=== PATIENT | female | born 1950 | race Caucasian/White ===

== ENCOUNTER 2023-11-10 15:07 | Emergency (ER) | payer OTHER, SELFPAY ==
[2023-11-10 15:15] VITALS: BP 180/85; PULSE 67; RESP 16; TEMP 36.6; O2SAT 98; BMI 33.8
--- NOTE | 2023-11-10 15:21 | DI.US.S_ITS ---
PROCEDURE: US PERIPH VENOUS LOW EXTREM LT INDICATIONS: pain and swelling/ history of a DVT TECHNIQUE: Real-time imaging, as well as color and pulse Doppler interrogation, were performed of the lower extremity deep veins from the inguinal ligament to the popliteal fossa, with documentation of the visualized calf veins. COMPARISON: None. FINDINGS: Nonocclusive thrombus is present in the common femoral vein and popliteal vein. Internal echoes are present along the wall. Remaining veins appear widely patent. IMPRESSION: Nonocclusive thrombus within the common femoral and popliteal vein. Cannot exclude subacute/ chronicity. No priors are available for comparison. Dictated by: Cecilia Hobson M.D. on 11/10/2023 at 16:35 Approved by: Ceiclia Hobson M.D. on 11/10/2023 at 16:37
[2023-11-10 17:22] VITALS: PULSE 66
--- NOTE | 2023-11-10 17:23 | ED_ITS ---
HPI - Extremity Problem <AMANDA Ta Last Filed: 11/10/23 17:57> General Chief complaint: Extremity Problem,Nontraumatic Stated complaint: concern for blood clot Time Seen by Provider: 11/10/23 17:23 Source: patient Mode of arrival: Wheelchair History of Present Illness HPI Narrative: This is a 73-year-old female presents to the emergency department due to left lower extremity pain and swelling for the last 4 or 5 days. She states that she was not being on her you bike as frequently which thinks may have caused the DVT. She states she has a history of DVT in the past. No recent surgeries. Related Data Previous Rx's Medication Instructions Recorded apixaban 5 mg (74 tabs) tablets in See Rx Instructions PO .COMPLEX 11/10/23 a dose pack (Eliquis DVT-PE Treat #74 ea 30D Start) rivaroxaban 15 mg (42)-20 mg (9) See Rx Instructions PO .COMPLEX 11/10/23 tablets in a starter pack (Xarelto #51 ea DVT-PE Treatment 30-Day Starter) rivaroxaban 15 mg (42)-20 mg (9) See Rx Instructions PO .COMPLEX 11/10/23 tablets in a starter pack (Xarelto #51 ea DVT-PE Treatment 30-Day Starter) Allergies Allergy/AdvReac Type Severity Reaction Status Date / Time amitriptyline Allergy Verified 11/10/23 15:30 amoxicillin Allergy Verified 11/10/23 15:30 atorvastatin Allergy Rash Verified 11/10/23 15:30 evolocumab Allergy Verified 11/10/23 15:30 ezetimibe Allergy Verified 11/10/23 15:30 famotidine Allergy Verified 11/10/23 15:30 lansoprazole Allergy Verified 11/10/23 15:30 naproxen Allergy Rash Verified 11/10/23 15:30 omeprazole Allergy Rash Verified 11/10/23 15:30 oxycodone Allergy Verified 11/10/23 15:30 Penicillins Allergy Verified 11/10/23 15:30 rosuvastatin Allergy Verified 11/10/23 15:30 tamsulosin Allergy Verified 11/10/23 15:30 zoster vaccine live Allergy Verified 11/10/23 15:30 corylus Allergy Uncoded 11/10/23 15:30 Review of Systems <AMANDA Ta Filed: 11/10/23 17:57> Review of Systems Narrative: GENERAL: Denies chills, fatigue, malaise, fever, sweats. HEENT: Denies sinus pain, ear pain, sore throat, difficulty swallowing, dizziness. RESPIRATORY: Denies dyspnea, cough, wheezing, hemoptysis, sputum. CARDIOVASCULAR: Denies chest pain, palpitations, orthopnea, edema, GASTROINTESTINAL: Denies nausea, vomiting, abdominal pain, diarrhea, constipation, melena. : Denies dysuria, frequency, incontinence, hematuria, urinary retention. MUSCULOSKELETAL: Reports left lower extremity pain and swelling SKIN: Denies rash, skin lesions, or other NEUROLOGIC: Denies weakness, headache, numbness, change in speech, confusion, seizures, incoordination. PSYCHIATRIC: No concerning psychosocial issues. 12 point review of systems is negative except for those stated above Patient History <Zohaib Proctor PA-C - Last Filed: 11/10/23 17:57> Social History Smoking Status: Never smoker Smoking Status: Never smoker Substance Use Type: does not use Exam <Zohaib Proctor PA-C - Last Filed: 11/10/23 17:57> Narrative Exam Narrative: GENERAL: Well-developed patient, in mild distress. HEAD: Atraumatic. Normocephalic. EYES: Pupils equal round and reactive. Extraocular motions intact. No scleral icterus. No injection or drainage. ENT: Nose without bleeding, purulent drainage. Throat without erythema, tonsillar hypertrophy or exudate. Airway patent. NECK: Trachea midline. Non tender EXTREMITIES: No significant tenderness to palpation to left lower extremity or swelling noted. Possible mild tenderness to palpation of the posterior thigh NEURO: AOx3. SKIN: No rash or erythema of visible areas Initial Vital Signs Initial Vital Signs: Vital Signs Temperature 97.9 F 11/10/23 15:15 Pulse Rate 67 11/10/23 15:15 Respiratory Rate 16 11/10/23 15:15 Blood Pressure 180/85 H 11/10/23 15:15 Pulse Oximetry 98 11/10/23 15:15 Oxygen Delivery Method Room Air 11/10/23 15:15 <Sonia Chandler DO - Last Filed: 11/11/23 18:48> Initial Vital Signs Initial Vital Signs: Vital Signs Temperature 97.9 F 11/10/23 15:15 Pulse Rate 67 11/10/23 15:15 Respiratory Rate 16 11/10/23 15:15 Blood Pressure 180/85 H 11/10/23 15:15 Pulse Oximetry 98 11/10/23 15:15 Oxygen Delivery Method Room Air 11/10/23 15:15 Course <Zohaib Proctor PA-C - Last Filed: 11/10/23 17:57> Orders Ordered: ED Orders 11/10/23 15:21 US periph venous low extrem lt Stat Vital Signs Vital signs: Vital Signs - 8 hr 11/10/23 15:15 11/10/23 17:22 Temperature 97.9 F Pulse Rate 67 Pulse Rate [Left Dorsalis Pedis] 66 Respiratory Rate 16 Blood Pressure 180/85 H Pulse Oximetry 98 Oxygen Delivery Method Room Air <Sonia Chandler DO - Last Filed: 11/11/23 18:48> Orders Ordered: ED Orders 11/10/23 15:21 US periph venous low extrem lt Stat Vital Signs Vital signs: Vital Signs - 8 hr 11/10/23 15:15 11/10/23 17:22 Temperature 97.9 F Pulse Rate 67 Pulse Rate [Left Dorsalis Pedis] 66 Respiratory Rate 16 Blood Pressure 180/85 H Pulse Oximetry 98 Oxygen Delivery Method Room Air MDM - Extremity (Nontraumatic) <Zohaib Proctor PA-C - Last Filed: 11/10/23 17:57> Imaging Data US - DVT: Radiologist's Impression: [place] [address] Ultrasound Report Signed Patient: Devorah Olmstead MR#: [id number] : 1950 Acct:[id number] Age/Sex: 73 / F Date of Service: 11/10/23 Loc: ED Accession Number: [id number] Procedure: US periph venous low extrem lt Ordering Provider: Sonia Chandler D.O. PROCEDURE: US PERIPH VENOUS LOW EXTREM LT INDICATIONS: pain and swelling/ history of a DVT TECHNIQUE: Real-time imaging, as well as color and pulse Doppler interrogation, were performed of the lower extremity deep veins from the inguinal ligament to the popliteal fossa, with documentation of the visualized calf veins. COMPARISON: None. FINDINGS: Nonocclusive thrombus is present in the common femoral vein and popliteal vein. Internal echoes are present along the wall. Remaining veins appear widely patent. IMPRESSION: Nonocclusive thrombus within the common femoral and popliteal vein. Cannot exclude subacute/ chronicity. No priors are available for comparison. Dictated by: Cecilia Hobson M.D. on 11/10/2023 at 16:35 Approved by: Cecilia Hobson M.D. on 11/10/2023 at 16:37 MDM Narrative Medical decision making narrative: ED course: This is a 73-year-old female presents to the emergency department due to an acute onset left lower extremity DVT based on ultrasound. We will treat with oral Eliquis. She was not reporting any chest pain or shortness of breath or any concerns for PE. CC: Left lower extremity pain Complicating co-morbidities: History of DVT in the past Data collected from: Previous notes Medical records reviewed: Patient was not been the past Differential considered, but not limited to: DVT, muscular strain Exam documented above, pertinent findings include: Some tenderness to palpation to posterior thigh Lab Test results independently reviewed as above. Pertinent findings: None obtained Imaging studies independently reviewed: Ultrasound showed DVT Scores Used: None MIPS Elements: None Consultations: None Treatments: None Re-evaluations: None Discussion: Discussed plan with the patient was comfortable with the plan Diagnosis: DVT Disposition: see below, along with detailed discharge instructions that have been reviewed with patient as well as indications for ED re-evaluation and additional outpatient follow up Discharge Plan Departure Patient Disposition: Home Clinical Impression: Deep vein thrombosis of lower extremity Activity Restrictions/Additional Instructions: Thank you for coming to the [facility] Emergency Department today. Please take the anticoagulation as prescribed. Please follow up with the primary care provider for complete treatment. I sent the medication to [facility] in [place]. Please return to the emergency department if you develop any chest pain, shortness of breath or any other concerning signs or symptoms. I hope you feel better soon. Please follow up with your primary care provider within a week if your symptoms continue. If you do not have a primary care provider please contact the [facility] Resource line at [phone]. They will ask some questions about your medical history and help you get set up with a provider in the community. Prescriptions: New Eliquis DVT-PE Treat 30D Start 5 mg (74 tabs) tablets,dose pack See Rx Instructions .ROUTE .COMPLEX Qty: 74 0RF Rx Instructions: orally per package directions Xarelto DVT-PE Treat 30d Start 15 mg (42)- 20 mg (9) tablets,dose pack See Rx Instructions .ROUTE .COMPLEX Qty: 51 0RF Rx Instructions: take one-15 mg tablet twice daily for 21 days, then one-20 mg tablet once daily; must take with meal/food Xarelto DVT-PE Treat 30d Start 15 mg (42)- 20 mg (9) tablets,dose pack See Rx Instructions .ROUTE .COMPLEX Qty: 51 0RF Rx Instructions: take one-15 mg tablet twice daily for 21 days, then one-20 mg tablet once daily; must take with meal/food Referrals: Miscellaneous,Doctor, MD [Primary Care Provider] - Stand Alone Forms: Patient Portal/API ED Sign-out <Sonia Chandler DO - Last Filed: 11/11/23 18:48> Cosign ED Attending Cosignature Attestation: I was immediately available in the department for consultation.
[2023-11-10 18:02] VITALS: BP 174/67; PULSE 85; RESP 16; TEMP 36.6; O2SAT 99
== END 2023-11-10 18:03 | disposition home or self-care (01) ==
PROVIDERS: Emergency Provider Physician Assistant Medical
DX: I82.412 Acute embolism and thrombosis of left femoral vein (principal); I82.432 Acute embolism and thrombosis of left popliteal vein
CPT/HCPCS: 93971; 99283